=== PATIENT | female | born 1975 | race Hispanic/Latino ===

== ENCOUNTER 2017-01-06 08:15 | Day surgery (SDC) | payer BC ==
[~2017-01-06] VITALS: Ht 162.6 cm; Wt 77.1 kg
[~2017-01-06 08:15] MED LIST: BIOTIN PO; CALC600T12 PO; FISH OIL; MVIT PO; SAW450CA7 PO; SODIUM CHLORIDE 0.9% 1000ML 1,000 ML IV ONE; VITAMIN B12 PO
[2017-01-06 08:54] VITALS: BP 112/70
[2017-02-23] MEDS ORDERED: PROG100C6 PO (11:22)
== END 2017-01-06 10:00 | disposition home or self-care (01) ==
LOC: DAH 08:15 → ENDO 08:15
PROVIDERS: ATTEND Internal Medicine Gastroenterology
DX: Z12.11 Encounter for screening for malignant neoplasm of colon (principal); Z53.8 Procedure and treatment not carried out for other reasons; Z80.0 Family history of malignant neoplasm of digestive organs
CPT/HCPCS: 36415; 84703; J7030

== ENCOUNTER 2017-02-24 07:43 | Day surgery (SDC) | payer BC ==
[~2017-02-24] VITALS: Ht 162.6 cm; Wt 78.1 kg
[~2017-02-24 07:43] MED LIST changes: +PROG100C6 PO
[2017-02-24 08:03] VITALS: BP 114/61
[2017-02-24] MEDS ORDERED: PROPOFOL 10 MG/ML 20ML VIAL IV ONE (08:59)
[2017-02-24] MEDS ORDERED: LIDOCAINE HCL 2% 20ML ONE (09:18)
[2017-02-24 09:35] VITALS: BP 87/51
== END 2017-02-24 10:10 ==
LOC: DAH 07:43 → ENDO 07:43
PROVIDERS: ATTEND Internal Medicine Gastroenterology
DX: Z12.11 Encounter for screening for malignant neoplasm of colon (principal); Z90.49 Acquired absence of other specified parts of digestive tract; Z80.0 Family history of malignant neoplasm of digestive organs
CPT/HCPCS: 36415; 45378; 84703; A4606; J2704; J3490; J7030

== ENCOUNTER → 2017-11-24 | Outpatient (CLI) | payer BC ==
[~2017-11-24] MED LIST changes: -SODIUM CHLORIDE 0.9% 1000ML 1,000 ML IV ONE
== END | disposition home or self-care (01) ==
LOC: RAH 11:39
PROVIDERS: ATTEND Obstetrics & Gynecology
DX: Z12.31 Encounter for screening mammogram for malignant neoplasm of breast (principal)
CPT/HCPCS: 77067

== ENCOUNTER 2018-09-13 15:07 | Observation (INO) | payer BC ==
[~2018-09-13 15:07] MED LIST changes: +PROG100C11 PO; -PROG100C6 PO
[2018-09-13] MEDS ORDERED: LACTATED RINGERS 1000ML 1,000 ML IV SCH (15:30)
[2018-09-13 15:48] LABS: APPEARANCE,URINE Clear (CLEAR); BILIRUBIN,URINE Negative (NEGATIVE); COLOR,URINE Yellow (YELLOW); GLUCOSE, URINE (UA) Negative (NEGATIVE); KETONES,URINE Negative (NEGATIVE); LEUKOCYTE ESTERASE ,URINE Negative (NEGATIVE); NITRATE,URINE Negative (NEGATIVE); OCCULT BLOOD,URINE Negative (NEGATIVE); PROTEIN,URINE Negative (NEGATIVE)
== END 2018-09-13 17:22 | disposition home or self-care (01) ==
LOC: LDH 15:07
PROVIDERS: ADMIT Obstetrics & Gynecology; ATTEND Obstetrics & Gynecology
DX: O36.8130 Decreased fetal movements, third trimester, not applicable or unspecified (principal); O09.523 Supervision of elderly multigravida, third trimester; Z3A.37 37 weeks gestation of pregnancy
CPT/HCPCS: 81003; G0378 ×2; J7120; 96360

== ENCOUNTER → 2019-12-16 | Outpatient (CLI) | payer BC ==
[~2019-12-16] MED LIST changes: -CALC600T12 PO; +CALC600T15 PO; +PREN-196 PO
== END | disposition home or self-care (01) ==
LOC: RAH 09:18
PROVIDERS: ATTEND Obstetrics & Gynecology
DX: Z12.31 Encounter for screening mammogram for malignant neoplasm of breast (principal)
CPT/HCPCS: 77067